=== PATIENT | female | born 1935 | race Caucasian/White ===

== ENCOUNTER → 2017-03-03 | Outpatient (CLI) | payer MEDICARE ==
[~2017-03-03] MED LIST: 3 BP MEDS; ACETAMINOPHEN PO; ADALATCC PO; AMLODIPINE BESYL5 MG PO; AMOX TR-K CLV 81 TA1 PO; AVALIDE PO; CHOLESTEROL MED; CLONIDINE TOP; CRESTOR10 MG PO; FUROSEMIDE40 MG PO; GABAPENTIN300 M2 PO; IBUPROFEN PO; JANUMET PO; LANTUS100 U/ML SUBQ; LOPRESSOR PO; LOTENSIN20 MG PO; PRILOSEC PO; PROTONIX PO; RANITIDINE HCL150 M1 PO; REGLAN PO; SYMBICORT INH; SYNTHROID; SYNTHROID PO; SYNTHROID0.1 MG PO; ULTRAM PO; VYTORIN 10/20 T1 TAB PO
--- NOTE | ~2017-03-03 | CR63 ---
[facility] A Service of [facility] & [facility] RADIOLOGY TEXT RESULTS PATIENT: EVELINA DUNNE LOCATION: [facility] : 37 UNIT #: [id number] AGE: [address]: Donnell Jenkins MD SEX: F ORDER DR: [id number] [facility] [address] [place], [place] [address] [id number] O MR#: [id number] Acc #: [id number] NAME: EVELINA DUNNE : 1935 SEX: F STUDY DATE/TIME: 03/03/2017 8:50 UNIT: [facility] ROOM: STUDY DESCRIPTION: CR Chest 2 View Attending Physician: Donnell Jenkins M.D. Referring Physician: Donnell Jenkins M.D. Ordering Physician: Donnell Jenkins M.D. Primary Care Physician: Krishna Gar Jr., M.D. MEDICAL IMAGING REPORT This report is preliminary unless electronic signature is present EXAM Chest 2 views dated 03/03/17. COMPARISON Chest 2 views dated 02/26/2016. HISTORY Shortness of today. Left renal cancer diagnosed 8 years ago. FINDINGS 2 views of the chest were obtained. No acute cardiopulmonary disease. Lungs appear to be relatively well aerated. No significant pleural effusion or pneumothorax. Heart is of normal size. Endplate osteophytes and degenerative changes are in the thoracic spine. Dictated by... Jc Fleming M.D. THIS IS AN ELECTRONICALLY VERIFIED REPORT Jc Fleming M.D. at 03/07/2017 2:44 PM CPR/gz TD: 03/03/2017 13:09 JOB #: [id number] MEDICAL IMAGING REPORT Page 1 of 1 COPY
--- NOTE | ~2017-03-03 | US77 ---
[facility] A Service of [facility] & [facility] RADIOLOGY TEXT RESULTS PATIENT: EVELINA DUNNE LOCATION: [facility] : 37 UNIT #: [id number] AGE: [address]: Donnell Jenkins MD SEX: F ORDER DR: [id number] [facility] [address] [place], [place] [address] [id number] O MR#: [id number] Acc #: [id number] NAME: EVELINA DUNNE : 1935 SEX: F STUDY DATE/TIME: 03/03/2017 8:10 UNIT: [facility] ROOM: STUDY DESCRIPTION: US Kidney Bilateral Complete Attending Physician: Donnell Jenkins M.D. Referring Physician: Donnell Jenkins M.D. Ordering Physician: Donnell Jenkins M.D. Primary Care Physician: Krishna Gar Jr., M.D. MEDICAL IMAGING REPORT This report is preliminary unless electronic signature is present EXAM Renal ultrasound bilateral complete 03/03/2017 HISTORY Left renal carcinoma status post left nephrectomy 8 years ago. Followup observation for recurrent carcinoma or metastatic disease. Abnormal renal function tests on 02/26/2016 with elevated creatinine 1.3 and abnormally low GFR 41.9 FINDINGS The right kidney measures 10.4 cm in longitudinal dimensions. There is no evidence of hydronephrosis or nephrolithiasis. No cystic or solid mass lesions were seen on the right kidney. There is normal renal cortical echogenicity. The left kidney is surgically absent as per patient history. No residual or recurrent mass is seen in the left renal fossa. Images of the bladder are normal. IMPRESSION 1. Normal right kidney. 2. Surgical absence of the left kidney. 3. Images of the bladder are normal. Dictated by... Jourdan Enrique M.D. THIS IS AN ELECTRONICALLY VERIFIED REPORT Jourdan Enrique M.D. at 03/03/2017 3:49 PM CHRISTIAN/mariela TD: 03/03/2017 14:38 JOB #: [id number] [facility] A Service of [facility] & [facility] RADIOLOGY TEXT RESULTS PATIENT: EVELINA DUNNE LOCATION: [facility] : 37 UNIT #: [id number] AGE: [address]: Donnell Jenkins MD SEX: F ORDER DR: MEDICAL IMAGING REPORT Page 1 of 1 COPY
[2017-03-03 08:55] LABS: HEMATOCRIT 45.3 % (35.0-45.0); HEMOGLOBIN 15.2 gm/dL (12.0-16.0); MEAN CELL VOLUME 90.8 FL (83-96); MEAN CORPUSCULAR HEMOGLOBIN 30.4 PG (28-34); MEAN CORPUSCULAR HGB CONC 33.5 g/dL (30-36); MEAN PLATELET VOLUME 8.6 FL (6.5-11.5); RED BLOOD COUNT 4.99 X10e (3.90-5.30); RED CELL DISTRIBUTION WIDTH 14.4 % (11.0-15.5); WHITE BLOOD COUNT 4.2 X10e3 (4.0-10.5)
[2017-03-03 09:22] LABS: ALBUMIN SERUM 3.6 g/dL (3.5-5.0); BILIRUBIN,TOTAL 1.1 mg/dL (0.2-2.0); BUN/CREATININE RATIO 15.33; CALCIUM SERUM 9.1 mg/dL (8.4-10.2); CREATININE SERUM 1.5 mg/dL (0.6-1.4); GLOM FILT RATE Estimated 32.4 mL/min (>60); POTASSIUM 3.9 mmol/L (3.5-5.1); PROTEIN TOTAL SERUM 7.7 g/dL (6.0-8.3)
== END | disposition home or self-care (01) ==
LOC: CWCC 07:55 → CRAD 07:55 → CWCC 08:00
PROVIDERS: Urology
DX: C64.2 Malignant neoplasm of left kidney, except renal pelvis (principal); M25.78 Osteophyte, vertebrae; M47.894 Other spondylosis, thoracic region; Z90.5 Acquired absence of kidney
CPT/HCPCS: 36415; 71020; 76770; 80053; 85027